=== PATIENT | female | born 1965 | race Caucasian/White ===

== ENCOUNTER 2019-10-06 12:49 | Emergency (ER) | payer OTHER, SELFPAY ==
--- NOTE | ~2019-10-06 | XR_ITS ---
EXAMINATION: XR shoulder LT min 2V EXAM DATE: 10/06/2019 17:51 INDICATION: No known recent injury provided at this time. Pain of the left shoulder. TECHNIQUE: The following left shoulder projections obtained: frontal projection with internal rotatio n, frontal projection with external rotation, Grashey, and scapular Y view (4+ views). There is no p rior study for comparison. FINDINGS: No evidence of left shoulder rotator cuff calcific tendinosis. There is mild glenohumera l, moderate acromioclavicular joint primary osteoarthritis. There are no acute fractures or dislocati ons identified. There is no subcutaneous gas. The soft tissue is unremarkable. There are no radio paque foreign bodies. IMPRESSION: Moderate left acromioclavicular, mild glenohumeral osteoarthritis. Reviewed, dictated and finalized at location A.
--- NOTE | ~2019-10-06 | XR_ITS ---
EXAMINATION: XR chest 2V DATE: 10/06/2019 13:42 INDICATION: Chest heaviness. Shoulder pain. TECHNIQUE: Frontal and lateral views of the chest were obtained. COMPARISON: Chest 2 views 10/04/2017 FINDINGS: Calcified right lung nodules and calcified mediastinal lymph nodes are consistent with old granulomatous disease. No pleural effusion or pneumothorax. The heart size is normal. IMPRESSION: 1. No acute cardiopulmonary disease. Reviewed, dictated and finalized at location A.
[2019-10-06 13:15] VITALS: BP 139/87; PULSE 95; RESP 16; TEMP 36.9; O2SAT 98
--- NOTE | 2019-10-06 13:17 | ECG_ITS ---
Measurements Intervals [place] Rate: 77 P: 40 NM: 160 QRS: 41 QRSD: 101 T: 28 QT: 384 QTc: 437 Interpretive Statements SINUS RHYTHM NORMAL ECG Electronically Signed On 10-06-2019 14:04:09 CDT by Miguel Alvarado D.O.
--- NOTE | 2019-10-06 13:18 | PC.NURSE ---
PT ALLERGIC TO ASA, TAKEN OUT OF PROTOCOL.
[2019-10-06 13:29] LABS: Basophils Absolute Auto 0.1 K/mm3 (0.0-0.1); Basophils Percent Auto 0.7 % (0.2-1.2); Eosinophils Absolute Auto 0.2 K/mm3 (0-0.3); Eosinophils Percent Auto 2.7 % (0-4.4); Hematocrit 41.4 % (37.0-47.0); Hemoglobin 13.5 g/dL (12.0-15.0); Immature Granulocyte Absolute 0.02 K/mm3 (0.00-0.031); Immature Granulocyte Percent A 0.3 % (0-0.5); Lymphocytes Absolute Auto 1.55 K/mm3 (0.9-3.2); Lymphocytes Percent Auto 20.8 % (18.3-44.2); Mean Corpuscular HGB Conc 32.6 g/dl (32-36); Mean Corpuscular Hemoglobin 32.7 pg (26-34); Mean Corpuscular Volume 100.2 fl (80-100); Mean Platelet Volume 9.5 fl (7.4-10.4); Monocytes Absolute Auto 0.5 K/mm3 (0.1-0.6); Neutrophils Absolute Auto 5.2 K/mm3 (1.3-6.7); Neutrophils Percent Auto 69.5 % (45.5-73.1); Platelet Count Result 244 k/mm3 (150-375); Red Blood Count 4.13 M/mm3 (4.2-5.4); Red Cell Distribution Width 12.3 % (11.5-14.5); White Blood Count 7.4 K/mm3 (4.5-10.0)
[2019-10-06 13:40] LABS: Blood Urea Nitrogen 16 mg/dL (7-17); Calcium 9.6 mg/dL (8.4-10.2); Carbon Dioxide 27 mmol/L (22-30); Chloride 104 mmol/L (98-107); Estimated CRCL calculation 90 ml/min; Estimated Glomerular Filt Rate > 60; Glucose 112 mg/dL (65-105); Potassium 3.8 mmol/L (3.4-5.0); Sodium 138 mmol/L (137-145)
[2019-10-06 13:42] LABS: INR 0.9; Partial Thromboplastin Time 27.4 SECONDS (22.3-36.8); Prothrombin Time 12.3 Seconds (11.1-14.7)
[2019-10-06 13:52] LABS: Troponin I < 0.012 ng/mL (0.000-0.034)
[2019-10-06 15:36] VITALS: BP 118/72; PULSE 72; RESP 18; TEMP 36.4; O2SAT 95
--- NOTE | 2019-10-06 16:41 | ED.UPPEXIN ---
HPI - Extremity Injury (Upper) General Chief Complaint: Extremity Injury, Upper Stated Complaint: left shoulder pain, vertigo Time Seen by Provider: 10/06/19 16:50 Source: patient and RN notes reviewed Mode of arrival: other Limitations: no limitations History of Present Illness HPI narrative: Pt is a 54 y/o female who presents to the ED with c/o sharp left shoulder stabbing pain that began a few days ago. She notes that her pain would wake her up in the middle of the night. She states that pain would be mild throughtout the day, but she states that her pain wakes her up several times during the night. 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 Pt notes that she has had cases of vertigo for the past week that would last for about 2 hours. Pt's PCP recommended the pt to come for further evaluation. Pt also reports chest pressure pain, but denies SOB. hx of htn, hld, former smoker, occ drink, fam hx: MO in father at age 70 complaint: injury to: left and shoulder Onset (ago): day(s) (few) Other injuries: none Associated symptoms: other (vertigo, chest pressure pain) Related Data Home Medications Medication Instructions Recorded Confirmed azelastine 137 mcg (0.1 %) nasal 2 spray NASAL Q12H ml 07/10/19 spray aerosol melatonin 10 mg capsule 10 mg PO .nightly cap 07/10/19 montelukast 10 mg tablet 10 mg PO DAILY 07/10/19 ibuprofen 200 mg capsule 400 mg PO Q6H PRN cap 07/16/19 Allergies Allergy/AdvReac Type Severity Reaction Status Date / Time aspirin Allergy Severe Anaphylaxis Verified 10/06/19 17:00 Review of Systems Review of Systems: All systems reviewed & are unremarkable except as noted in HPI and below ENT: Reports vertigo Cardiovascular: Cardiovascular: Reports chest pain (pressure) Respiratory: Respiratory: Denies dyspnea Musculoskeletal: Musculoskeletal: Reports other (left shoulder pain) [facility] Past Medical History Medical History (Updated 10/06/19 @ 17:37 by Johann Yañez MD) Ankylosing spondylitis Arthritis Depression DVT (deep venous thrombosis) Endometrial polyp Fatty liver GERD (gastroesophageal reflux disease) History of angina HTN (hypertension) Hyperlipidemia IBS (irritable bowel syndrome) Iron deficiency anemia CLEMENT (obstructive sleep apnea) Peripheral neuropathy MERRY (stress urinary incontinence, female) Tendonitis of ankle or foot Ulcer Surgical History Surgical History (Updated 10/06/19 @ 17:03 by Lindsey Salter) H/O arthroscopic knee surgery left History of hysterectomy History of spinal surgery L4-S1, x2 Hx of appendectomy Hx of tonsillectomy Family History Family History (Updated 10/06/19 @ 17:04 by Lindsey Salter) Father Family history of osteoporosis Hypertension Acute myocardial infarction, Onset Age: 70 Mother Depression Hypertension Family history of arthritis Patient's mother is in good health Grandparent Malignant neoplasm of prostate Sibling Family history of malignant melanoma Other Family history of malignant neoplasm Social History Social History (Updated 10/06/19 @ 17:03 by Lindsey Salter) Smoking status: Former smoker Tobacco type: cigarettes Second hand tobacco smoke exposure: Yes Smoking end date: 07/30/11 Alcohol intake: current Gender identity (if verbalized by the patient): Female Exam Narrative: Exam Narrative: General appearance: Well-developed, well-nourished Skin: Normal color Head: Normocephalic, nontraumatic Eyes: Clear conjunctiva ENT: Oropharynx normal, ears normal, nose normal Neck: Supple, nontender Chest and respiratory: Airway patent, no respiratory distress, no accessory muscle use Heart: Regular rate/rhythm Abdomen: Soft, nontender, no organomegaly, quiet bowel sounds Vascular: Normal peripheral pulses, normal capillary refill. Musculoskeletal: Normal range of motion, nontender back Neurologic: Alert and oriented ?3, DOWEL POINTER is normal as tested, no g
[2019-10-06 17:08] LABS: Troponin I < 0.012 ng/mL (0.000-0.034)
[2019-10-06 18:07] VITALS: BP 122/80; PULSE 75; RESP 18; O2SAT 99
[2019-10-06 18:34] VITALS: BP 121/83; PULSE 83; RESP 18; O2SAT 99
== END 2019-10-06 18:40 | disposition home or self-care (01) ==
PROVIDERS: Emergency Medicine; Emergency Provider Emergency Medicine; PCP Internal Medicine
DX: M25.512 Pain in left shoulder (principal); Z86.718 Personal history of other venous thrombosis and embolism; K21.9 Gastro-esophageal reflux disease without esophagitis; I10 Essential (primary) hypertension; E78.5 Hyperlipidemia, unspecified; K58.9 Irritable bowel syndrome, unspecified; G47.33 Obstructive sleep apnea (adult) (pediatric); G62.9 Polyneuropathy, unspecified; M19.012 Primary osteoarthritis, left shoulder; Z87.891 Personal history of nicotine dependence; Z86.2 Personal history of diseases of the blood and blood-forming organs and certain disorders involving the immune mechanism
CPT/HCPCS: 36415; 71046; 73030; 80048; 84484; 85025; 85610; 85730; 93005; 99284

== ENCOUNTER 2020-02-04 08:16 | Outpatient (CLI) | payer OTHER, SELFPAY ==
[2020-02-04 08:31] LABS: Basophils Percent Auto 0.5 % (0.2-1.2); Eosinophils Absolute Auto 0.3 K/mm3 (0-0.3); Eosinophils Percent Auto 3.7 % (0-4.4); Hematocrit 37.8 % (37.0-47.0); Hemoglobin 12.6 g/dL (12.0-15.0); Immature Granulocyte Absolute 0.04 K/mm3 (0.00-0.031); Immature Granulocyte Percent A 0.5 % (0-0.5); Lymphocytes Absolute Auto 1.42 K/mm3 (0.9-3.2); Lymphocytes Percent Auto 19.5 % (18.3-44.2); Mean Corpuscular HGB Conc 33.3 g/dl (32-36); Mean Corpuscular Hemoglobin 33.2 pg (26-34); Mean Corpuscular Volume 99.7 fl (80-100); Monocytes Absolute Auto 0.5 K/mm3 (0.1-0.6); Monocytes Percent Auto 6.8 % (2.6-8.5); Platelet Count Result 246 k/mm3 (150-375); Red Blood Count 3.79 M/mm3 (4.2-5.4); White Blood Count 7.3 K/mm3 (4.5-10.0)
[2020-02-04 08:40] LABS: Hemoglobin A1C 5.7 % (<5.7)
[2020-02-04 08:43] LABS: Alanine Aminotransferase 15 U/L (4-35); Albumin Level 3.8 g/dL (3.5-5.1); Alkaline Phosphatase 97 U/L (38-126); Aspartate Amino Transferase 19 U/L (14-36); Bilirubin,Total 0.3 mg/dL (0.2-1.3); Blood Urea Nitrogen 21 mg/dL (7-17); Calcium 9.2 mg/dL (8.4-10.2); Carbon Dioxide 29 mmol/L (22-30); Chloride 104 mmol/L (98-107); Cholesterol 176 mg/dL (0-200); Estimated Glomerular Filt Rate 58; Glucose 105 mg/dL (65-105); HDL Direct 54 mg/dL; Magnesium 1.9 mg/dL (1.6-2.3); Potassium 3.8 mmol/L (3.4-5.0); Sodium 138 mmol/L (137-145); Triglycerides 119 mg/dL (<150)
[2020-02-04 08:53] LABS: LDL Cholesterol Direct 101 mg/dL
[2020-02-04 09:13] LABS: Thyroid Stimulating Hormone 0.184 uIU/mL (0.465-4.680)
[2020-02-04 09:51] LABS: Folic Acid > 20.0 ng/mL (2.76->20)
== END 2020-02-04 08:17 | disposition home or self-care (01) ==
LOC: ANHLAB 08:18
PROVIDERS: PCP Internal Medicine; Visit Provider Internal Medicine
DX: Z00.00 Encounter for general adult medical examination without abnormal findings (principal); R53.83 Other fatigue; I10 Essential (primary) hypertension; R73.9 Hyperglycemia, unspecified
CPT/HCPCS: 36415; 80053; 80061; 82607; 82746; 83036; 83735; 84443; 85025

== ENCOUNTER 2020-04-14 00:56 | Outpatient (CLI) | payer OTHER, SELFPAY ==
[2020-04-14 18:28] LABS: SARS-CoV-2 RNA PCR Negative
== END 2020-04-14 00:57 | disposition home or self-care (01) ==
LOC: ANHCOVIDDT 00:56
PROVIDERS: PCP Internal Medicine; Visit Provider Internal Medicine Gastroenterology
DX: Z20.828 Contact with and (suspected) exposure to other viral communicable diseases (principal)
CPT/HCPCS: 87635; C9803; U0003

== ENCOUNTER 2020-04-16 03:58 | Day surgery (SDC) | payer OTHER, SELFPAY ==
[2020-04-12 12:44] VITALS: BMI 45.4
[2020-04-16 07:15] VITALS: BP 127/93; PULSE 71; RESP 24; O2SAT 97; BMI 46.0
[2020-04-16] MEDS: LACTATED RINGERS 1,000 ML 150 ML IV CONT (07:21)
--- NOTE | 2020-04-16 07:23 | WPDANESEPPF ---
Anes - Initial Pre Proc Eval Procedure: Operation Date: 04/16/20 08:00 Proposed Procedures p Screening Colonoscopy - Lance Meyer MD Date/Time: 04/16/20 07:23 Surgeon: Lance Meyer MD Pre Op Diagnosis: neoplasm screening Patient Data Age: 54 Gender: F Height: 5 ft 7 in Weight: 133.2 kg Last Vital Signs Pulse 71 04/16/20 07:15 Resp 24 H 04/16/20 07:15 BP 127/93 H 04/16/20 07:15 Pulse Ox 97 04/16/20 07:15 Allergies Allergy/AdvReac Type Severity Reaction Status Date / Time aspirin Allergy Severe Anaphylaxis Verified 04/16/20 07:14 Home Medications Medication Instructions Recorded Confirmed Type azelastine 137 mcg (0.1 %) nasal 2 spray NASAL Q12H ml 07/10/19 04/12/20 History spray aerosol melatonin 10 mg capsule 10 mg PO .nightly cap 07/10/19 04/12/20 History benzonatate 200 mg capsule 200 mg PO BID PRN #20 cap 11/07/19 04/12/20 Rx cefuroxime axetil 500 mg tablet 500 mg PO Q12H #20 tablet 11/07/19 04/12/20 Rx carvedilol 12.5 mg tablet 12.5 mg PO Q12H #180 tablet 01/23/20 04/12/20 Rx citalopram 20 mg tablet 20 mg PO DAILY #90 tablet 02/11/20 04/12/20 Rx montelukast 10 mg tablet 10 mg PO DAILY #90 tablet 02/11/20 04/12/20 Rx lisinopril 20 1 tablet PO BID #180 tablet 02/29/20 04/12/20 Rx mg-hydrochlorothiazide 12.5 mg tablet meloxicam 7.5 mg tablet 7.5 mg PO DAILY #30 tablet 04/12/20 04/12/20 Rx pantoprazole 40 mg tablet,delayed 40 mg PO BID #60 tablet 04/12/20 04/12/20 Rx release Patient hx anesthesia problems: none Family hx anesthesia problems: none PMFSH Social History Social History Years smoked: 22 Smoking status: Former smoker Tobacco type: cigarettes Second hand tobacco smoke exposure: Yes Smoking end date: 07/30/11 Alcohol intake: current Drinks per week: 2 Substance use: unknown Substance use type: unknown Living arrangements: with family Gender identity (if verbalized by the patient): Female Spiritual care concerns: No Anes - Eval Final PreProcedure Day of Procedure 04/16/20 07:23 Patient weight: morbidly obese Heart: regular rate and rhythm Lungs: clear to auscultation Airway: Mallampati scale class II Neurological: alert and oriented Last oral intake: >/= 8 hours ASA classification: IV Emergent: no Anesthetic plan: proceed Anesthesia type and monitoring: general GIVS and standard monitoring Informed Consent: The patient's anesthetic plan and its attendant risks and benefits were discussed with the patient/family/POA. Questions were solicited and answers provided to the satisfaction of the patient/family/POA.
--- NOTE | 2020-04-16 07:28 | PM.HPGS ---
History of Present Illness History of Present Illness Consent: Risks, benefits, and alternatives have been discussed and questions answered. Patient agrees to proceed with procedure. Chief complaint: neoplasm screening Narrative: Rebecca George is a 54 year old female here for colon cancer screening. [facility] Past Medical History Medical History Ankylosing spondylitis Arthritis Depression DVT (deep venous thrombosis) Endometrial polyp Fatty liver GERD (gastroesophageal reflux disease) History of angina HTN (hypertension) Hyperlipidemia IBS (irritable bowel syndrome) Iron deficiency anemia CLEMENT (obstructive sleep apnea) Peripheral neuropathy MERRY (stress urinary incontinence, female) Tendonitis of ankle or foot Ulcer Vaginal delivery x 2 Surgical History Surgical History H/O arthroscopic knee surgery left History of hysterectomy History of spinal surgery L4-S1, x2 Hx of appendectomy Hx of tonsillectomy Family History Family History Father Family history of osteoporosis Hypertension Acute myocardial infarction, Onset Age: 70 Mother Depression Hypertension Family history of arthritis Patient's mother is in good health Grandparent Malignant neoplasm of prostate Sibling Family history of malignant melanoma Other Family history of malignant neoplasm Social History Social History Years smoked: 22 Smoking status: Former smoker Tobacco type: cigarettes Second hand tobacco smoke exposure: Yes Smoking end date: 07/30/11 Alcohol intake: current Drinks per week: 2 Substance use: unknown Substance use type: unknown Living arrangements: with family Gender identity (if verbalized by the patient): Female Spiritual care concerns: No Meds Home Medications and Allergies Home Medications Medication Instructions Recorded Confirmed Type azelastine 137 mcg (0.1 %) nasal 2 spray NASAL Q12H ml 07/10/19 04/12/20 History spray aerosol melatonin 10 mg capsule 10 mg PO .nightly cap 07/10/19 04/12/20 History benzonatate 200 mg capsule 200 mg PO BID PRN #20 cap 11/07/19 04/12/20 Rx cefuroxime axetil 500 mg tablet 500 mg PO Q12H #20 tablet 11/07/19 04/12/20 Rx carvedilol 12.5 mg tablet 12.5 mg PO Q12H #180 tablet 01/23/20 04/12/20 Rx citalopram 20 mg tablet 20 mg PO DAILY #90 tablet 02/11/20 04/12/20 Rx montelukast 10 mg tablet 10 mg PO DAILY #90 tablet 02/11/20 04/12/20 Rx lisinopril 20 1 tablet PO BID #180 tablet 02/29/20 04/12/20 Rx mg-hydrochlorothiazide 12.5 mg tablet meloxicam 7.5 mg tablet 7.5 mg PO DAILY #30 tablet 04/12/20 04/12/20 Rx pantoprazole 40 mg tablet,delayed 40 mg PO BID #60 tablet 04/12/20 04/12/20 Rx release Allergies Allergy/AdvReac Type Severity Reaction Status Date / Time aspirin Allergy Severe Anaphylaxis Verified 04/16/20 07:14 Vital Signs Vital Signs - 24 hr 04/16/20 07:15 Pulse Rate 71 Respiratory Rate 24 H Blood Pressure 127/93 H Pulse Oximetry 97 Exam Resp: Auscultation: clear to auscultation bilaterally Cardio: Rate: regular rate Rhythm: regular rhythm GI: GI Palp: Yes Soft to palpation and No Tenderness to palpation present (GI) Assessment and Plan Assessment and plan (1) Colon cancer screening: Code(s): Z12.11 - Encounter for screening for malignant neoplasm of colon Status: Acute Assessment and Plan: Colonoscopy with possible biopsy or polypectomy or cautery or injection of substances.
[2020-04-16 08:09] VITALS: BP 104/69; PULSE 68; RESP 19; O2SAT 94
[2020-04-16 08:19] VITALS: BP 110/70; PULSE 71; RESP 19; O2SAT 98
[2020-04-16 08:29] VITALS: BP 118/70; PULSE 62; RESP 21; O2SAT 96
== END 2020-04-16 08:45 | disposition home or self-care (01) ==
PROVIDERS: PCP Internal Medicine; Visit Provider Internal Medicine Gastroenterology
PROC: 0DJD8ZZ Inspection of Lower Intestinal Tract, Via Natural or Artificial Opening Endoscopic (ICD-10-PCS; CPT 45378; principal; 2020-04-16 08:00)
DX: Z12.11 Encounter for screening for malignant neoplasm of colon (principal); Z87.891 Personal history of nicotine dependence; E66.01 Morbid (severe) obesity due to excess calories; Z68.42 Body mass index [BMI] 45.0-49.9, adult
CPT/HCPCS: 45378; J2704; J7120

== ENCOUNTER 2020-08-10 11:58 | Emergency (ER) | payer OTHER, SELFPAY ==
--- NOTE | ~2020-08-10 | CT_ITS ---
EXAMINATION: CTA chest PE protocol EXAM DATE: 08/10/2020 15:18 INDICATION: Shortness of breath, fever. COVID positive. TECHNIQUE: Spiral CTA of the chest (pulmonary arteries) was performed with 100 cc Omnipaque 350 intr avenous contrast injection. Images were acquired during the pulmonary arterial phase. Coronal maxi mum intensity projection 3D-reconstructions were created by the technologist on dedicated workstation . Axial, coronal and sagittal reformatted images were reviewed. The dose-length product (DLP) for t his examination was 1033.82 mGy-cm. The exposure was tailored according to patient size (auto mA ex posure control), and iterative reconstruction (ASIR) was used as additional dose reduction technique. Correlation is made to chest x-ray same date. FINDINGS: There are no pulmonary emboli in the 1st through 3rd order (central and interlobar) pulmon niels arteries. Some loss of attenuation in the basilar segmental pulmonary arteries without evidence of respiratory motion in these areas. No Intraluminal filling defects suspected. No thoracic aortic dissection. Moderate amount of patchy bilateral ill-defined peripheral predominant acute airspace di sease consistent with COVID pneumonia. Trace bilateral pleural effusions. Tracheobronchial tree is patent. There is no mediastinal, hilar or axillary lymphadenopathy. There is no pneumothorax. H eart normal in size. No evidence of coronary arterial calcification. Upper abdomen is unremarkable . There is moderate thoracic spondylosis without osteoblastic or osteolytic lesions identified. IMPRESSION: 1. No central pulmonary emboli. Basilar subsegmental arteries are not well evaluated. 2. Moderate COVID pneumonia. 3. Trace pleural effusions. Reviewed, dictated and finalized at location B. [employer]ER IMPRESSION: 1. No central pulmonary emboli. Basilar subsegmental arteries are not well pete luated. 2. Moderate COVID pneumonia. 3. Trace pleural effusions.
--- NOTE | ~2020-08-10 | XR_ITS ---
EXAMINATION: XR chest 1V portable DATE: 08/10/2020 14:27 INDICATION: Shortness of breath and fever. COVID-19 positive on 08/01/20. TECHNIQUE: A single frontal view of the chest was obtained. COMPARISON: Chest 2 views 10/02/2019 FINDINGS: A calcified right lung nodule is consistent with old granulomatous disease. There are airsp jb opacities in the mid and lower lung zones. No pleural effusion or pneumothorax. The heart size is normal. IMPRESSION: 1. Airspace opacities in the mid and lower lung zones, consistent with pneumonia. Reviewed, dictated and finalized at location A. GER CONSUMER IMPRESSION: 1. Airspace opacities in the mid and lower lung zones, consistent with pneumoni a.
[2020-08-10 12:04] VITALS: BP 104/65; PULSE 93; RESP 24; TEMP 38; O2SAT 95
[2020-08-10 14:02] VITALS: BP 138/78; PULSE 88; RESP 18; O2SAT 95
--- NOTE | 2020-08-10 14:03 | ED.SOB ---
HPI - SOB/Dyspnea General Chief Complaint: Shortness of Breath/Dyspnea Stated Complaint: covid positive Time Seen by Provider: 08/10/20 13:57 Source: patient Mode of arrival: ambulatory Limitations: no limitations History of Present Illness HPI Narrative: Patient is a 50-year-old female complaining of shortness of breath, body aches and fever that started approximately 10 days ago but states is worse for the past few days. Patient states that she tested positive for Covid on August 01. Patient denies any chest pain, dull pain, nausea, vomiting, diarrhea. Related Data Home Medications Medication Instructions Recorded Confirmed azelastine 137 mcg (0.1 %) nasal 2 spray NASAL Q12H ml 07/10/19 04/12/20 spray aerosol melatonin 10 mg capsule 10 mg PO .nightly cap 07/10/19 04/12/20 Allergies Allergy/AdvReac Type Severity Reaction Status Date / Time aspirin Allergy Severe Anaphylaxis Verified 04/16/20 07:14 Review of Systems Review of Systems: All systems reviewed & are unremarkable except as noted in HPI and below Constitutional: Constitutional: Denies excessive sweating, Denies fatigue, Denies headache(s), Denies lethargy, Denies malaise, Denies weakness and Denies weight loss Eyes: Eyes: Denies blurry vision, Denies change in vision and Denies loss of vision ENT: Denies dizziness, Denies ear discharge, Denies headache(s), Denies lip swelling, Denies epistaxis, Denies nasal congestion, Denies neck pain, Denies throat swelling and Denies tongue swelling Cardiovascular: Cardiovascular: Denies chest pain, Denies chest pain at rest, Denies chest pain with activity, Denies diaphoresis, Denies rapid heart rate, Denies edema, Denies irregular heart rhythm, Denies lightheadedness and Denies palpitations Respiratory: Respiratory: Denies chest congestion, Denies cough and Denies hemoptysis Gastrointestinal: Gastrointestinal: Denies abdominal pain, Denies melena, Denies hematochezia, Denies diarrhea, Denies nausea, Denies vomiting and Denies hematemesis Musculoskeletal: Musculoskeletal: Denies abnormal gait, Denies deformity, Denies joint swelling, Denies limited range of motion, Denies neck pain and Denies numbness Neurologic: Denies Abnormal speech present, Denies abnormal gait, Denies confusion, Denies dizziness, Denies headache(s), Denies focal weakness, Denies loss of vision, Denies numbness, Denies Other visual disturbances, Denies Sensory deficit (Neuro) and Denies weakness Psychiatric: Psychiatric: Denies confusion, Denies depression, Denies auditory hallucinations, Denies homicidal ideation and Denies suicidal ideation Endocrine: Endocrine: Denies cold intolerance, Denies excessive sweating, Denies fatigue, Denies heat intolerance and Denies palpitations Hematologic/Lymphatic: Hematologic/Lymphatic: Denies easy bleeding and Denies easy bruising Allergic/Immunologic: Allergic/Immunologic: Denies lip swelling, Denies throat swelling and Denies tongue swelling PMFSH Past Medical History Medical History (Updated 08/10/20 @ 16:11 by Alfredo Velasquez MD) Ankylosing spondylitis Arthritis Depression DVT (deep venous thrombosis) Endometrial polyp Fatty liver GERD (gastroesophageal reflux disease) History of angina HTN (hypertension) Hyperlipidemia IBS (irritable bowel syndrome) Iron deficiency anemia CLEMENT (obstructive sleep apnea) Peripheral neuropathy MERRY (stress urinary incontinence, female) Tendonitis of ankle or foot Ulcer Vaginal delivery x 2 Surgical History Surgical History H/O arthroscopic knee surgery left History of hysterectomy History of spinal surgery L4-S1, x2 Hx of appendectomy Hx of tonsillectomy Family History Family History Father Family history of osteoporosis Hypertension Acute myocardial infarction, Onset Age: 70 Mother Depression Hypertension Family history of arthritis
[2020-08-10 14:13] LABS: Basophils Percent Auto 0.3 % (0.2-1.2); Hematocrit 42.2 % (37.0-47.0); Hemoglobin 14.1 g/dL (12.0-15.0); Immature Granulocyte Absolute 0.01 K/mm3 (0.00-0.031); Immature Granulocyte Percent A 0.3 % (0-0.5); Lymphocytes Absolute Auto 0.65 K/mm3 (0.9-3.2); Lymphocytes Percent Auto 16.3 % (18.3-44.2); Mean Corpuscular HGB Conc 33.4 g/dl (32-36); Mean Corpuscular Hemoglobin 32.9 pg (26-34); Mean Corpuscular Volume 98.6 fl (80-100); Mean Platelet Volume 9.3 fl (7.4-10.4); Monocytes Absolute Auto 0.3 K/mm3 (0.1-0.6); Monocytes Percent Auto 7.8 % (2.6-8.5); Neutrophils Percent Auto 75.3 % (45.5-73.1); Platelet Count Result 137 k/mm3 (150-375); Red Blood Count 4.28 M/mm3 (4.2-5.4); Red Cell Distribution Width 12.3 % (11.5-14.5)
[2020-08-10] MEDS: LACTATED RINGERS 1,000 ML 999 ML IV CONT (14:16)
[2020-08-10 14:25] LABS: Base Excess ABG 1.3 mEq/l (+/-2.0); Carboxyhemoglobin 0.6 % THb (0-2.0); Fractional Inspired Oxygen 21 %; HCO3 ABG 24.5 mEq/l (22.0-26.0); Methemoglobin ABG 0.1 %THb (0-1.5); Oxygen Content ABG 17.6 %vol (16.0-22.0); Oxygen Saturation ABG 92.1 % (95.0-100.0); Oxyhemoglobin 90.7 % THb (90.0-100.0); PCO2 ABG 34.5 mmHg (35.0-45.0); PO2 ABG 58.4 mmHg (80.0-100.0); PO2 FiO2 Ratio Arterial Blood 2.78 %; Reduced Hemoglobin 8.6 %THb (0-5.0); Total Hemoglobin 13.8 g/dL (12.0-18.0)
[2020-08-10 14:26] LABS: Device ROOM AIR; Modified Allen's Test Pass; Site Drawn RIGHT RADIAL
[2020-08-10 14:38] LABS: Anion Gap 5 mmol/L (8-16); Blood Urea Nitrogen 16 mg/dL (7-17); Calcium 8.8 mg/dL (8.4-10.2); Carbon Dioxide 31 mmol/L (22-30); Chloride 101 mmol/L (98-107); Estimated CRCL calculation 72 ml/min; Estimated Glomerular Filt Rate 52; Glucose 129 mg/dL (65-105); Potassium 3.6 mmol/L (3.4-5.0); Sodium 137 mmol/L (137-145)
[2020-08-10 14:47] LABS: Lactic Acid Reflex 1.2 mmol/L (0.7-2.1)
[2020-08-10 14:54] LABS: Troponin I < 0.012 ng/mL (0.000-0.034)
[2020-08-10 15:24] LABS: D Dimer 0.42 ug/mL (<0.48)
[2020-08-10 15:53] LABS: Add Urine Microscopic? NO; Appearance Urine Clear (Clear); Bilirubin Urine Negative (Negative); Blood Urine Negative (Negative); Color Urine Yellow (Yellow); Glucose Urine UA Negative (Negative); Ketones Urine Negative (Negative); Leukocyte Esterase Ur Negative LEU/UL (Negative); Nitrate Urine Negative (Negative); Protein Urine Negative (Negative); Urobilinogen Urine Negative mg/dL (<2.0)
[2020-08-10 15:54] LABS: Specific Grav Ur > 1.060 (1.001-1.035)
[2020-08-10 16:53] VITALS: BP 132/68; PULSE 68; RESP 18; O2SAT 99
== END 2020-08-10 16:55 | disposition home or self-care (01) ==
PROVIDERS: Emergency Provider Emergency Medicine; PCP Internal Medicine
DX: U07.1 COVID-19 (principal); J12.82 Pneumonia due to coronavirus disease 2019; M19.90 Unspecified osteoarthritis, unspecified site; Z86.718 Personal history of other venous thrombosis and embolism; K21.9 Gastro-esophageal reflux disease without esophagitis; E78.5 Hyperlipidemia, unspecified; I10 Essential (primary) hypertension; G47.33 Obstructive sleep apnea (adult) (pediatric); G62.9 Polyneuropathy, unspecified; Z87.891 Personal history of nicotine dependence
CPT/HCPCS: 36415; 36600; 71045; 71275; 80048; 81003; 82375; 82805; 83050; 83605; 84484; 85025; 85380; 96360; 96372; 99284; J1100; J7120; Q9967

== ENCOUNTER 2020-11-05 12:46 | Outpatient (CLI) | payer SELFPAY ==
--- NOTE | ~2020-11-05 | XR_ITS ---
EXAMINATION: XR lumbar spine 2-3V EXAM DATE: 11/05/2020 13:09 INDICATION: Back pain. TECHNIQUE: Lumber spine frontal, lateral, lateral L5-S1 projections for interpretation. Comparison is made to prior examination from 07/31/2014. Correlation was made with CT lumbar spine 08/22/2016. FINDINGS: Interval posterior fusion L4-S1, in grade 1 anterolisthesis at the L4-5 level. There is mo derate to severe disc disease at L2-3, mild to moderate disc disease at the other lumbar levels. Mini mal lumbar dextroscoliosis. There is mild compression fracture inferior endplate of L1 which is new c ompared to 2017. Given sclerosis, appears subacute to chronic. Sacrum, sacroiliac joints, sacral arcu ate lines are intact. There are no acute fractures identified. IMPRESSION: 1. Mild compression fracture of L1, sclerosis suggests this is most likely subacute to chronic. 2. Spondylosis, moderate to severe disc disease at L2-3. 3. Intact fusion L4-S1. Reviewed, dictated and finalized at location A. IMPRESSION: 1. Mild compression fracture of L1, sclerosis suggests this is most likely sub acute to chronic. 2. Spondylosis, moderate to severe disc disease at L2-3. 3. Intact fusion L4-S1.
--- NOTE | ~2020-11-05 | XR_ITS ---
EXAMINATION: XR thoracic spine 2V EXAM DATE: 11/05/2020 13:09 INDICATION: Back pain. TECHNIQUE: Frontal and lateral projections of the thoracic spine as well as lateral swimmers projecti on of the upper thoracic spine for interpretation. There is no prior study for comparison. FINDINGS: There are no acute fractures identified. There is mild to moderate mid and lower thoracic disc disease. The thoracic vertebral body heights relatively well-maintained. The vertebral bodies ar e aligned in the AP dimension. Paraspinal soft tissue is unremarkable. IMPRESSION: 1. Mild to moderate thoracic spondylosis. 2. No acute findings. Reviewed, dictated and finalized at location A.
== END 2020-11-05 12:47 | disposition home or self-care (01) ==
PROVIDERS: PCP Internal Medicine; Visit Provider Internal Medicine
DX: M47.894 Other spondylosis, thoracic region (principal); M47.896 Other spondylosis, lumbar region; Z95.1 Presence of aortocoronary bypass graft
CPT/HCPCS: 72070; 72100

== ENCOUNTER 2020-12-14 10:06 | Outpatient (CLI) | payer SELFPAY ==
--- NOTE | ~2020-12-14 | US_ITS ---
EXAMINATION: US venous doppler [facility] DATE: 12/14/2020 11:14 INDICATION: Left lower limb pain. TECHNIQUE: Grayscale ultrasound images without and with compression and Doppler ultrasound images of the left lower extremity veins were obtained. COMPARISON: None. FINDINGS: The visualized portions of left common femoral vein, profunda (deep) femoral vein, femoral vein, popl iteal vein, posterior tibial veins, and greater saphenous vein outflow are patent. There is tendinopa thy of the Achilles tendon with at least a partial tear. IMPRESSION: 1. No deep venous thrombosis. 2. Tendinopathy of the Achilles tendon with at least a partial tear. Reviewed, dictated and finalized at location A.
== END 2020-12-14 10:07 | disposition home or self-care (01) ==
LOC: ANHIMG 10:13
PROVIDERS: PCP Internal Medicine; Visit Provider Physician Assistant
DX: M79.605 Pain in left leg (principal); R60.9 Edema, unspecified
CPT/HCPCS: 93971

== ENCOUNTER 2021-06-27 07:53 | Outpatient (CLI) | payer OTHER, SELFPAY ==
[2021-06-27 08:20] LABS: Basophils Absolute Auto 0.1 K/mm3 (0.0-0.1); Eosinophils Absolute Auto 0.2 K/mm3 (0-0.3); Eosinophils Percent Auto 2.5 % (0-4.4); Hematocrit 37.6 % (37.0-47.0); Hemoglobin 12.6 g/dL (12.0-15.0); Immature Granulocyte Absolute 0.02 K/mm3 (0.00-0.031); Immature Granulocyte Percent A 0.3 % (0-0.5); Lymphocytes Absolute Auto 1.64 K/mm3 (0.9-3.2); Lymphocytes Percent Auto 27.2 % (18.3-44.2); Mean Corpuscular HGB Conc 33.5 g/dl (32-36); Mean Corpuscular Volume 98.4 fl (80-100); Mean Platelet Volume 9.3 fl (7.4-10.4); Monocytes Absolute Auto 0.5 K/mm3 (0.1-0.6); Monocytes Percent Auto 7.6 % (2.6-8.5); Neutrophils Absolute Auto 3.7 K/mm3 (1.3-6.7); Neutrophils Percent Auto 61.4 % (45.5-73.1); Platelet Count Result 225 k/mm3 (150-375); Red Blood Count 3.82 M/mm3 (4.2-5.4)
[2021-06-27 08:30] LABS: Alanine Aminotransferase 13 U/L (4-35); Albumin Level 3.8 g/dL (3.5-5.1); Alkaline Phosphatase 106 U/L (38-126); Anion Gap 3 mmol/L (8-16); Aspartate Amino Transferase 19 U/L (14-36); Bilirubin,Total 0.4 mg/dL (0.2-1.3); Blood Urea Nitrogen 20 mg/dL (7-17); Calcium 9.4 mg/dL (8.4-10.2); Carbon Dioxide 29 mmol/L (22-30); Chloride 104 mmol/L (98-107); Cholesterol 186 mg/dL (0-200); Estimated Glomerular Filt Rate > 60; Glucose 106 mg/dL (65-110); HDL Direct 70 mg/dL; Potassium 3.9 mmol/L (3.4-5.0); Sodium 136 mmol/L (137-145); Triglycerides 88 mg/dL (<150)
[2021-06-27 08:41] LABS: LDL Cholesterol Direct 99 mg/dL
== END 2021-06-27 07:54 | disposition home or self-care (01) ==
PROVIDERS: PCP Internal Medicine; Visit Provider Internal Medicine
DX: R53.83 Other fatigue (principal); E78.5 Hyperlipidemia, unspecified
CPT/HCPCS: 36415; 80053; 80061; 82607; 82746; 84443; 85025

== ENCOUNTER 2021-10-31 09:03 | Outpatient (CLI) | payer OTHER, SELFPAY ==
--- NOTE | 2021-10-31 09:10 | ECG_ITS ---
Measurements Intervals [place] Rate: 56 P: 29 VA: 169 QRS: 49 QRSD: 89 T: 30 QT: 410 QTc: 399 Interpretive Statements SINUS BRADYCARDIA Electronically Signed On 10-31-2021 14:31:40 CDT by Yared Parekh M.D.
[2021-10-31 10:00] LABS: Anion Gap 5 mmol/L (8-16); Blood Urea Nitrogen 17 mg/dL (7-17); Carbon Dioxide 27 mmol/L (22-30); Chloride 106 mmol/L (98-107); Estimated Glomerular Filt Rate > 60; Glucose 98 mg/dL (65-110); Potassium 3.9 mmol/L (3.4-5.0); Sodium 138 mmol/L (137-145)
== END 2021-10-31 09:04 | disposition home or self-care (01) ==
LOC: ANHSURGERY 09:07
PROVIDERS: Anesthesiology; PCP Internal Medicine; Visit Provider Orthopaedic Surgery
DX: Z51.81 Encounter for therapeutic drug level monitoring (principal); I10 Essential (primary) hypertension; Z79.899 Other long term (current) drug therapy; Z01.818 Encounter for other preprocedural examination; R00.1 Bradycardia, unspecified
CPT/HCPCS: 36415; 80048; 93005

== ENCOUNTER 2021-11-03 01:39 | Day surgery (SDC) | payer OTHER, SELFPAY ==
[2021-10-28 15:36] VITALS: BMI 43.4
--- NOTE | 2021-10-28 16:01 | PC.NURSE ---
Report to the Outpatient Waiting Room, entrance under the green pavilion located off [facility], at time ___6:00AM____ on date _11/03/21 . OR Time: __7:30AM . - You and your visitor will be asked a series of questions to screen for COVID 19 for your protection. - A mask is required within the hospital. Preoperative COVID Testing Requirements: No COVID Test needed if: (proof is required; if not received patient will have Rapid Test prior to entry) - Patient has received COVID Vaccine at least 14 days prior to procedure date or - Patient has positive COVID test result within last 90 days of surgery date. COVID Test needed if above criteria is not met If not COVID vaccinated a COVID test must be conducted within 72 hours of surgery and patient is asked to isolate self from time of testing until procedure. You will go to the [facility] for your COVID testing. The [facility] site is located at the corner of [address] [facility]. You will only be called if COVID results are positive and your surgeon may reschedule your elective surgery date. Patients may have clear liquids (water, carbonated beverages, clear teas, apple juice) until 3 hours prior to surgery with a maximum of 20 ounces. - No food from midnight until time of surgery - Infants may have breast milk until 4 hours before surgery, formula 6 hours prior to surgery. - Children will be allowed to drink immediately following surgery. If applicable, please bring a bottle or sippy cup to assist with drinking. Juice, water, soda, and popsicles are readily available. For infants on formula, please bring formula the day of surgery. Pacifiers are allowed. Take the following medications with a SIP of water the morning of surgery: ___CARVEDILOL, CITALOPRAM Medications to discontinue per physician ALEVE 7 DAYS PRE-OP PER DR PERALTA- LAST DOSE 10/28/21, ALL VITAMINS/SUPPLEMENTS 3 DAYS PRE-OP-LAST DOSE 10/30/21 Please no make-up, nail kiswahili, hairspray, perfume, deodorant, or body powder the day of surgery. No jewelry (including any body piercings) or valuables the day of surgery, leave them at home. Please take a shower or bath the night before, or the morning of, surgery with an antibacterial soap. Wear comfortable, loose fitting clothing. Children are encouraged to wear pajamas. - Jewelry must be removed prior to entering the operating room. Rings and piercings that are not removed may be cut off. - The hospital will not accept responsibility for valuables. - Please leave all valuables, including medications, at home the day of surgery. If you are going home after surgery, a licensed courier delivery driver must drive you home. - NO public transportation without another adult. - We recommend that an adult stay with you for 24 hours following discharge. - We also recommend that you do not drive, make important decision, drink alcoholic beverages, or take any drugs that were not prescribed by your health care provider for at least 24 hours after your discharge time. For Pediatric surgeries, we recommend two adults accompany the child home (only one inside the building at this time). One visitor will be allowed to accompany the patient into the hospital. Patients visitor will be instructed to remain with patient at all times or leave the building. We will allow the visitor to come back to the postoperative area when patient is ready. Follow any additional instructions given to you from your surgeon. Telephone instructions given to __PATIENT and asked if any additional questions and then verbalized understanding. Patient advised to call surgeon office or pre surgery nurse liaison [phone] if any additional questions.
--- NOTE | 2021-11-02 17:04 | WPDANESEPPF ---
Anes - Initial Pre Proc Eval Procedure: Operation Date: 11/03/21 07:30 Proposed Procedures p Right Achilles Tendon Reconstruction, - Jules Estrada MD s Excision Calcaneal Exostosis Right Ankle, Possible Flexor Hallucis Longus Tendon Transfer - Jules Estrada MD Date/Time: 11/02/21 17:04 Surgeon: Jules Estrada MD Pre Op Diagnosis: right achilles tendonosis,calcaneal exostosis Patient Data Age: 56 Gender: F Height: 1.7 m Weight: 126 kg Allergies Allergy/AdvReac Type Severity Reaction Status Date / Time aspirin Allergy Severe Anaphylaxis Verified 10/28/21 15:31 Home Medications Medication Instructions Recorded Confirmed Type carvedilol 12.5 mg tablet 12.5 mg PO Q12H #180 tablet 06/29/21 10/28/21 Rx lisinopril 20 1 tablet PO BID #180 tablet 06/29/21 10/28/21 Rx mg-hydrochlorothiazide 12.5 mg tablet montelukast 10 mg tablet 10 mg PO DAILY #90 tablet 06/29/21 10/28/21 Rx pantoprazole 40 mg tablet,delayed 40 mg PO BID #60 tablet 06/29/21 10/28/21 Rx release calcium polycarbophil [FiberCon] 1,250 mg PO DAILY 10/28/21 10/28/21 History citalopram 40 mg PO QAM 10/28/21 10/28/21 History cyanocobalamin (vitamin B-12) 500 mcg PO DAILY 10/28/21 10/28/21 History elderberry fruit [Elderberry] 200 mg PO DAILY 10/28/21 10/28/21 History naproxen sodium [Aleve] 440 mg PO BID PRN 10/28/21 10/28/21 History Patient hx anesthesia problems: none Family hx anesthesia problems: none Results Review: All pre-operative results and documents have been reviewed as part of the pre-operative evaluation. [facility] Past Medical History Medical History (Updated 11/02/21 @ 17:07 by Todd Mulligan MD) Achilles tendinitis of right lower extremity Anesthesia complication Ankylosing spondylitis Arthritis Chest tightness Depression DVT (deep venous thrombosis) Endometrial polyp Exostosis of right posterior calcaneus Fatty liver GERD (gastroesophageal reflux disease) History of angina HTN (hypertension) Hyperlipidemia IBS (irritable bowel syndrome) Iron deficiency anemia MRSA (methicillin resistant Staphylococcus aureus) Obesity, Class III, BMI 40-49.9 (morbid obesity) CLEMENT (obstructive sleep apnea) Peripheral neuropathy MERRY (stress urinary incontinence, female) Tendonitis of ankle or foot Ulcer Vaginal delivery x 2 Vertigo Surgical History Surgical History H/O arthroscopic knee surgery left History of hysterectomy History of spinal surgery L4-S1, x2 Hx of appendectomy Hx of tonsillectomy Family History Family History Father Family history of osteoporosis Hypertension Acute myocardial infarction, Onset Age: 70 Mother Depression Hypertension Family history of arthritis Patient's mother is in good health Grandparent Malignant neoplasm of prostate Sibling Family history of malignant melanoma Other Cerebrovascular accident Family history of malignant neoplasm Kidney disorder Social History Social History Smoking packs per day: 1 Smoking cigarettes per day: 20.0 Years smoked: 20 Smoking pack-years: 20.00 Smoking status: Former smoker Tobacco type: cigarettes Second hand tobacco smoke exposure: Yes Smoking end date: 01/27/98 Alcohol intake: current Drinks per week: 14 Substance use: never Substance use type: marijuana Other substance usage details: intermittent use for pain Living arrangements: with family Additional living arrangements comments: TOM 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
[2021-11-03] VITALS (7 sets, daily range): BP systolic 115–156; BP diastolic 72–106; PULSE 59–76; RESP 12–16; TEMP 36.2–36.4; O2SAT 93–100
--- NOTE | ~2021-11-03 | XR_ITS ---
EXAMINATION: XR surgery orthopedic DATE: 11/03/2021 08:29 INDICATION: Right foot and ankle surgery TECHNIQUE: 3 fluoroscopic images of the right hindfoot were obtained during procedure performed by Dr Lex Estrada. Radiologist was not present for the imaging or procedure. The amount of fluoroscopy time u sed during this procedure was 0.1 minutes. COMPARISON: None. FINDINGS: Osteotomy at the cephalad aspect of the posterior tuberosity of the calcaneus. Surgical retractors se parating a lucent soft tissue defect overlying the osteotomy. Moderate-sized plantar calcaneal spur. No fracture. Joint spaces are normal. IMPRESSION: 1. Fluoroscopy utilized during posterior right calcaneal osteotomy. See procedure note for further de tail. Reviewed, dictated and finalized at location B. IMPRESSION: 1. Fluoroscopy utilized during posterior right calcaneal osteotomy. See procedu re note for further detail.
[2021-11-03] MEDS: ACETAMINOPHEN 500 MG TABLET 1000 MG PO (06:58)
--- NOTE | 2021-11-03 07:08 | WPDHPUPDATE1 ---
History and Physical Update Update Date/Time: 11/03/21 07:08 History and Physical has been reviewed, including an updated exam of the patient. There are NO changes in the patient's condition. Risks, benefits, and alternatives have been discussed and questions answered. Patient agrees to proceed with procedure.
[2021-11-03] MEDS: LACTATED RINGERS 1,000 ML 30 ML IV CONT (07:09)
[2021-11-03] MEDS: ceFAZolin 3 GM/D5W 100 ML 100 ML IVPB (07:30)
[2021-11-03] MEDS: BUPIVACAINE HCL 0.5% PF 30 ML VIAL INFILTRATE (08:13)
--- NOTE | 2021-11-03 09:18 | W.PM.PROC2 ---
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 Failed conservative care with physical therapy, activity modification and immobilization. Presents now for operative treatment. Description of Procedure Patient identified in the preoperative holding. Informed consent given. Operative extremity marked. Patient received intravenous antibiotics. Patient brought to the operating room where underwent general anesthetic by anesthesia team. Positioned prone on operating room table. Care taken to carefully secure and protect the head neck, and pad the bony prominences, and position the shoulders and arms. Time-out performed confirming the patient, site of the surgery and the plan. Right lower extremity prepped draped usual sterile surgical fashion using ChloraPrep skin solution. Foot and ankle exsanguinated and thigh tourniquet inflated to 250 mmHg. Direct posterior midline incision made with 15 blade knife over the distal Achilles tendon and posterior calcaneus. Hemostasis achieved with electrocautery. Full-thickness skin flaps developed medially and laterally including the paratenon over the Achilles tendon. Distal Achilles tendon noted to be degenerative with calcifications present. Fifteen blade knife used to release the Achilles tendon off the distal calcaneus with a midline split. Calcifications and degenerative portions sharply excised. Sufficient amount of normal Achilles tendon remaining for reconstruction. Osteotome used to resect the posterior calcaneal exostosis and osteophytes. Edges smoothed with a rongeur. Image intensification brought in and confirmed resection of the posterior exostosis. Wound thoroughly irrigated antibiotic solution. Retrocalcaneal bursa also sharply excised and bleeding points coagulated. Attention then turned to the Achilles tendon. Reconstruction achieved with the Arthrex Speed Bridge. 3.5 mm drill holes placed in posterior calcaneus and PushLock anchors placed with fiber tape. Fiber tape then delivered through the medial and lateral end of the Achilles tendon. Repair completed by passing the FiberTape ends through 4.75 mm SwiveLock anchors placed distal to the Achilles tendon insertion. Good repair noted. Midline split repaired with 0 Vicryl interrupted suture. Wound thoroughly irrigated antibiotic solution. Paratenon then repaired with 3 0 Monocryl running suture. Deep soft tissue repaired with 2 Vicryl interrupted suture. Skin approximated with 4 O nylon running suture. Sterile dressing applied. Bulky dressing and splint applied after releasing the tourniquet. The patient was then woken from anesthesia, extubated and taken to the recovery room in stable condition. All sponge, needle, instrument counts were correct at the end of the case. Implants Arthrex suture bridge Estimated Blood Loss 5 Tourniquet Time 75 Drains No Packing No Pathology None sent Complications None Condition Stable Disposition PACU
== END 2021-11-03 10:45 | disposition home or self-care (01) ==
PROVIDERS: PCP Internal Medicine; Visit Provider Orthopaedic Surgery
PROC: (CPT 27650; principal; 2021-11-03 07:30)
PROC: (CPT 28120; 2021-11-03 07:30)
DX: M76.61 Achilles tendinitis, right leg (principal); M77.31 Calcaneal spur, right foot; I10 Essential (primary) hypertension; E78.5 Hyperlipidemia, unspecified; D50.9 Iron deficiency anemia, unspecified; F32.9 Major depressive disorder, single episode, unspecified; K76.0 Fatty (change of) liver, not elsewhere classified; G47.33 Obstructive sleep apnea (adult) (pediatric); G62.9 Polyneuropathy, unspecified; N39.3 Stress incontinence (female) (male); Z86.718 Personal history of other venous thrombosis and embolism; Z87.891 Personal history of nicotine dependence; F12.90 Cannabis use, unspecified, uncomplicated; E66.01 Morbid (severe) obesity due to excess calories; Z68.41 Body mass index [BMI] 40.0-44.9, adult
CPT/HCPCS: 28120; 27650; A9270; C1713; J0330; J0690; J1100; J1170; J1885; J2250; J2405; J2704; J2710; J3010; J7120

== ENCOUNTER 2022-02-27 10:32 | Outpatient (RCR) | payer OTHER, SELFPAY ==
[2022-02-27] MEDS: ACETAMINOPHEN 325 MG TABLET 650 MG PO (14:43)
[2022-02-27] MEDS: diphenhydrAMINE HCl CAP 25 MG CAPSULE PO (14:44)
[2022-02-27] MEDS: FAMOTIDINE 20 MG TABLET PO (14:44)
[2022-02-27 14:52] VITALS: BP 126/83; PULSE 87; RESP 18; TEMP 37.1; O2SAT 95
[2022-02-27] MEDS: BEBTELOVIMAB 175 MG/2 ML VIAL IV PUSH (15:04)
[2022-02-27 15:44] VITALS: BP 128/77; PULSE 85; RESP 18; O2SAT 98
== END 2022-02-27 16:00 ==
LOC: AMCINF 10:32
PROVIDERS: PCP Internal Medicine; Referring Provider Internal Medicine; Visit Provider Internal Medicine Hematology & Oncology
DX: U07.1 COVID-19 (principal); I10 Essential (primary) hypertension
CPT/HCPCS: A9270; M0222; Q0222

== ENCOUNTER 2022-05-24 07:52 | Outpatient (CLI) | payer OTHER, SELFPAY ==
--- NOTE | ~2022-05-24 | US_ITS ---
US abdomen complete EXAMINATION: US Abdomen Complete INDICATION: Abdominal pain PROCEDURE: Realtime High Resolution abdomen ultrasound. COMPARISON: Ultrasound dated 03/26/2017 FINDINGS: Gallbladder within normal limits. No gallstones, pericholecystic fluid, gallbladder wall t hickening or biliary dilatation. Common bile duct measures 5 mm. Liver echotexture is increased, consistent with fatty infiltration.. Pancreas within normal limits. Pancreatic tail is obscured by bowel gas. Spleen is unremarkeable. Renal echotexture is within norm al limits bilaterally without hydronephrosis, contour deforming mass or renal stone. Right kidney lexis sures 12.7 cm. Left kidney measures 10.3 cm. Visualized aspects of the aorta and IVC are within normal limits. Portal vein is patent. No sonograph ic Cummings's sign indicated by the technologist. IMPRESSION: 1: Hepatic steatosis. Reviewed, dictated and finalized at location B. IMPRESSION: 1: Hepatic steatosis.
[2022-05-24 08:45] LABS: Basophils Absolute Auto 0.1 K/mm3 (0.0-0.1); Basophils Percent Auto 0.9 % (0.2-1.2); Eosinophils Absolute Auto 0.2 K/mm3 (0-0.3); Eosinophils Percent Auto 2.9 % (0-4.4); Hematocrit 38.5 % (37.0-47.0); Hemoglobin 12.5 g/dL (12.0-15.0); Immature Granulocyte Absolute 0.04 K/mm3 (0.00-0.031); Immature Granulocyte Percent A 0.6 % (0-0.5); Lymphocytes Absolute Auto 1.72 K/mm3 (0.9-3.2); Lymphocytes Percent Auto 25.3 % (18.3-44.2); Mean Corpuscular HGB Conc 32.5 g/dl (32-36); Mean Corpuscular Hemoglobin 32.7 pg (26-34); Mean Corpuscular Volume 100.8 fl (80-100); Mean Platelet Volume 9.1 fl (7.4-10.4); Monocytes Absolute Auto 0.4 K/mm3 (0.1-0.6); Monocytes Percent Auto 5.9 % (2.6-8.5); Neutrophils Absolute Auto 4.4 K/mm3 (1.3-6.7); Neutrophils Percent Auto 64.4 % (45.5-73.1); Platelet Count Result 244 k/mm3 (150-375); Red Blood Count 3.82 M/mm3 (4.2-5.4); Red Cell Distribution Width 12.6 % (11.5-14.5); White Blood Count 6.8 K/mm3 (4.5-10.0)
[2022-05-24 08:57] LABS: Rheumatoid Factor < 8.6 IU/ML (<12)
[2022-05-24 09:08] LABS: Alanine Aminotransferase 19 U/L (6-35); Albumin Level 3.7 g/dL (3.5-5.1); Alkaline Phosphatase 101 U/L (38-126); Anion Gap 6 mmol/L (8-16); Aspartate Amino Transferase 19 U/L (14-36); Bilirubin,Total 0.6 mg/dL (0.2-1.3); Blood Urea Nitrogen 18 mg/dL (7-17); Calcium 9.1 mg/dL (8.4-10.2); Carbon Dioxide 27 mmol/L (22-30); Chloride 109 mmol/L (98-107); Cholesterol 174 mg/dL (0-200); Estimated Glomerular Filt Rate > 60; Glucose 106 mg/dL (65-110); HDL Direct 53 mg/dL; Potassium 3.9 mmol/L (3.4-5.0); Sodium 142 mmol/L (137-145); Triglycerides 95 mg/dL (<150)
[2022-05-24 09:19] LABS: LDL Cholesterol Direct 92 mg/dL
[2022-05-24 10:14] LABS: Folic Acid 6.4 ng/mL (2.76->20)
[2022-05-24 10:25] LABS: Erythrocyte Sedimentation Rate 15 mm/hr (0-20)
[2022-05-28 20:35] LABS: HLA B27 Negative (Negative)
== END 2022-05-24 07:53 | disposition home or self-care (01) ==
LOC: ANHIMG 07:54
PROVIDERS: PCP Internal Medicine; Visit Provider Internal Medicine
DX: R10.13 Epigastric pain (principal); R53.83 Other fatigue; I10 Essential (primary) hypertension; M45.9 Ankylosing spondylitis of unspecified sites in spine; M79.10 Myalgia, unspecified site; K76.0 Fatty (change of) liver, not elsewhere classified
CPT/HCPCS: 36415; 76700; 80053; 80061; 82607; 82746; 84443; 85025; 85652; 86038; 86430; 86812

== ENCOUNTER 2022-06-01 00:58 | Day surgery (SDC) | payer OTHER, SELFPAY ==
[2022-05-24 13:16] VITALS: BMI 43.9
--- NOTE | 2022-05-31 15:57 | PM.HPGS ---
History of Present Illness History of Present Illness Consent: Risks, benefits, and alternatives have been discussed and questions answered. Patient agrees to proceed with procedure. Chief complaint: Epigastric Pain Narrative: Rebecca George is a 57 year old female Referred for investigation of epigastric pain. She states that she has attacks every couple weeks of discomfort in the upper abdomen somewhat towards the left side. Along with this she notices she is often constipated. She has not been vomiting or losing weight. She occasionally has difficulty swallowing cold liquids, feeling that it is constricting in the upper esophagus. Review of Systems Review of Systems: All systems reviewed & are unremarkable except as noted in HPI and below PMFSH Past Medical History Medical History Achilles tendinitis Achilles tendinitis of right lower extremity Anesthesia complication Ankylosing spondylitis Arthritis Chest tightness Depression DVT (deep venous thrombosis) Encounter for postoperative care Endometrial polyp Exostosis of right posterior calcaneus Fatty liver GERD (gastroesophageal reflux disease) History of angina HTN (hypertension) Hyperlipidemia IBS (irritable bowel syndrome) Iron deficiency anemia MRSA (methicillin resistant Staphylococcus aureus) Obesity, Class III, BMI 40-49.9 (morbid obesity) CLEMENT (obstructive sleep apnea) Peripheral neuropathy MERRY (stress urinary incontinence, female) Tendonitis of ankle or foot Ulcer Vaginal delivery x 2 Vertigo Surgical History Surgical History H/O arthroscopic knee surgery left History of hysterectomy History of spinal surgery L4-S1, x2 Hx of appendectomy Hx of tonsillectomy Family History Family History Father Family history of osteoporosis Hypertension Acute myocardial infarction, Onset Age: 70 Mother Depression Hypertension Family history of arthritis Patient's mother is in good health Grandparent Malignant neoplasm of prostate Sibling Family history of malignant melanoma Other Cerebrovascular accident Family history of malignant neoplasm Kidney disorder Social History Social History Smoking packs per day: 1 Smoking cigarettes per day: 20.0 Years smoked: 15 Smoking pack-years: 15.00 Smoking status: Former smoker Tobacco type: cigarettes Second hand tobacco smoke exposure: Yes Smoking end date: 01/27/98 Alcohol intake: current Drinks per week: 7 Alcohol use details: 1 glass per day Substance use: never Substance use type: does not use Other substance usage details: intermittent use for pain Living arrangements: with family Additional living arrangements comments: TOM 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[employer] Gender identity (if verbalized by the patient): Female Sexual Orientation (if Verbalized by the Patient): Straight or Heterosexual Spiritual care concerns: No Meds Home Medications and Allergies Home Medications Medication Instructions Recorded Confirmed Type calcium polycarbophil 625 mg 1,250 mg PO DAILY 10/28/21 05/24/22 History tablet (FiberCon) cyanocobalamin (vitamin B-12) 500 500 mcg PO DAILY 10/28/21 05/24/22 History mcg tablet naproxen sodium 220 mg capsule 440 mg PO BID PRN Pain 10/28/21 05/24/22 History (Aleve) citalopram 40 mg tablet 40 mg PO QAM #90 tabs 03/18/22 05/24/22 Rx pantoprazole 40 mg tablet,delayed 40 mg PO BID #60 tabs 03/18/22 05/24/22 Rx release carvedilol 12.5 mg tablet 12.5 mg PO Q12H #180 tabs 04/27/22 06/01/22 Rx montelukast 10 mg tablet 10 mg PO DAILY #90 tabs 04/27/22 05/24/22 Rx (Singulair) lisinopril 20 1 tablet PO BID #180 tabs 05/10/22 05/24/22 Rx mg-hydrochloroth
[2022-06-01 11:10] VITALS: BP 134/87; PULSE 75; RESP 18; TEMP 36.4; O2SAT 96
[2022-06-01] MEDS: LACTATED RINGERS 1,000 ML 150 ML IV CONT (11:22)
--- NOTE | 2022-06-01 11:52 | WPDANESEPPF ---
Anes - Initial Pre Proc Eval Procedure: Operation Date: 06/01/22 12:30 Proposed Procedures p Esophagogastroduodenoscopy - Lance Meyer MD Date/Time: 06/01/22 11:52 Surgeon: Lance Meyer MD Pre Op Diagnosis: Epigastric Pain Patient Data Age: 57 Gender: F Height: 1.7 m Weight: 129.6 kg Last Vital Signs Temp 97.6 F 06/01/22 11:10 Pulse 75 06/01/22 11:10 Resp 18 06/01/22 11:10 BP 134/87 06/01/22 11:10 Pulse Ox 96 06/01/22 11:10 O2 Del Method Room Air 06/01/22 11:10 Allergies Allergy/AdvReac Type Severity Reaction Status Date / Time aspirin Allergy Severe Anaphylaxis Verified 06/01/22 11:08 Home Medications Medication Instructions Recorded Confirmed Type calcium polycarbophil 625 mg 1,250 mg PO DAILY 10/28/21 05/24/22 History tablet (FiberCon) cyanocobalamin (vitamin B-12) 500 500 mcg PO DAILY 10/28/21 05/24/22 History mcg tablet naproxen sodium 220 mg capsule 440 mg PO BID PRN Pain 10/28/21 05/24/22 History (Aleve) citalopram 40 mg tablet 40 mg PO QAM #90 tabs 03/18/22 05/24/22 Rx pantoprazole 40 mg tablet,delayed 40 mg PO BID #60 tabs 03/18/22 05/24/22 Rx release carvedilol 12.5 mg tablet 12.5 mg PO Q12H #180 tabs 04/27/22 06/01/22 Rx montelukast 10 mg tablet 10 mg PO DAILY #90 tabs 04/27/22 05/24/22 Rx (Singulair) lisinopril 20 1 tablet PO BID #180 tabs 05/10/22 05/24/22 Rx mg-hydrochlorothiazide 12.5 mg tablet Patient hx anesthesia problems: none Family hx anesthesia problems: none Results Review: All pre-operative results and documents have been reviewed as part of the pre-operative evaluation. [facility] Past Medical History Medical History (Updated 05/31/22 @ 15:59 by Lance Meyer MD) Achilles tendinitis Achilles tendinitis of right lower extremity Anesthesia complication Ankylosing spondylitis Arthritis Chest tightness Depression DVT (deep venous thrombosis) Encounter for postoperative care Endometrial polyp Exostosis of right posterior calcaneus Fatty liver GERD (gastroesophageal reflux disease) History of angina HTN (hypertension) Hyperlipidemia IBS (irritable bowel syndrome) Iron deficiency anemia MRSA (methicillin resistant Staphylococcus aureus) Obesity, Class III, BMI 40-49.9 (morbid obesity) CLEMENT (obstructive sleep apnea) Peripheral neuropathy MERRY (stress urinary incontinence, female) Tendonitis of ankle or foot Ulcer Vaginal delivery x 2 Vertigo Surgical History Surgical History H/O arthroscopic knee surgery left History of hysterectomy History of spinal surgery L4-S1, x2 Hx of appendectomy Hx of tonsillectomy Family History Family History Father Family history of osteoporosis Hypertension Acute myocardial infarction, Onset Age: 70 Mother Depression Hypertension Family history of arthritis Patient's mother is in good health Grandparent Malignant neoplasm of prostate Sibling Family history of malignant melanoma Other Cerebrovascular accident Family history of malignant neoplasm Kidney disorder Social History Social History Smoking packs per day: 1 Smoking cigarettes per day: 20.0 Years smoked: 15 Smoking pack-years: 15.00 Smoking status: Former smoker Tobacco type: cigarettes Second hand tobacco smoke exposure: Yes Smoking end date: 01/27/98 Alcohol intake: current Drinks per week: 7 Alcohol use details: 1 glass per day Substance use: never Substance use type: does not use Other substance usage details: intermittent use for pain Living arrangements: with family Additional living arrangements comments: TOM 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
[2022-06-01] MEDS: BENZOCAINE (*SP) 60 ML SPRAY CAN (HURRICAINE) 1 SPRAY MUCOUS MEM (12:08)
[2022-06-01 12:18] VITALS: BP 115/75; PULSE 72; RESP 23; O2SAT 96
[2022-06-01 12:28] VITALS: BP 121/76; PULSE 73; RESP 22; O2SAT 98
[2022-06-01 12:38] VITALS: BP 130/90; PULSE 68; RESP 25; O2SAT 98
== END 2022-06-01 12:46 | disposition home or self-care (01) ==
PROVIDERS: PCP Internal Medicine; Visit Provider Internal Medicine Gastroenterology
PROC: 0DJ08ZZ Inspection of Upper Intestinal Tract, Via Natural or Artificial Opening Endoscopic (ICD-10-PCS; CPT 43235; principal; 2022-06-01 12:30)
DX: R10.13 Epigastric pain (principal); I10 Essential (primary) hypertension; E78.5 Hyperlipidemia, unspecified; D50.9 Iron deficiency anemia, unspecified; F32.A Depression, unspecified; K21.9 Gastro-esophageal reflux disease without esophagitis; G47.33 Obstructive sleep apnea (adult) (pediatric); G62.9 Polyneuropathy, unspecified; K76.0 Fatty (change of) liver, not elsewhere classified; E66.01 Morbid (severe) obesity due to excess calories; Z68.41 Body mass index [BMI] 40.0-44.9, adult; Z87.891 Personal history of nicotine dependence; Z86.718 Personal history of other venous thrombosis and embolism
CPT/HCPCS: 43239; 87081; J2704; J7120

== ENCOUNTER 2022-09-26 08:12 | Outpatient (CLI) | payer OTHER, SELFPAY ==
--- NOTE | ~2022-09-26 | MM_ITS ---
EXAMINATION: MM screening trung BI w gabbie HISTORY: Screening mammogram TECHNIQUE: Craniocaudal and mediolateral oblique 3-D tomosynthesis images were obtained and synthetic 2-D images were generated. CAD analysis was submitted and interpreted. COMPARISON: 12/18/2018, 03/09/2016 bilateral screening mammogram examinations BREAST PARENCHYMAL COMPOSITION: There are scattered areas of fibroglandular density. FINDINGS: There is no evidence of suspicious mass, calcification, or architectural distortion to sugg est malignancy in either breast. There has been no suspicious interval change. IMPRESSION: 1. No mammographic evidence of malignancy. 2. Recommend routine screening mammography in one year. BI-RADS Category 1: Negative Reviewed, dictated and finalized at location A. ER MACHINE OPERATOR
== END 2022-09-26 08:13 | disposition home or self-care (01) ==
PROVIDERS: PCP Internal Medicine; Visit Provider Internal Medicine
DX: Z12.31 Encounter for screening mammogram for malignant neoplasm of breast (principal)
CPT/HCPCS: 77063; 77067

== ENCOUNTER 2023-01-23 10:27 | Outpatient (CLI) | payer OTHER, SELFPAY ==
--- NOTE | ~2023-01-23 | NM_ITS ---
EXAMINATION: NM jacinda stress w perfusion DATE: 01/23/2023 14:38 INDICATION: Palpitations. Morbid obesity. TECHNIQUE: Rest images were obtained following intravenous administration of 9.7 mCi Tc99m tetrofosmi n (Myoview). The patient was infused intravenously with Lexiscan (Regadenoson). Then, 30.5 mCi Tc99m tetrofosmin (Myoview) was administered intravenously, and stress images were obtained in supine posit ion. Repeat post stress images were also obtained in the prone position. Data was reconstructed into short axis and horizontal and vertical long axis SPECT images. Gated SPECT images were also obtained. COMPARISON: None. FINDINGS: There is no definite reversible or fixed perfusion abnormality to suggest ischemia or infar ction. There is normal left ventricular chamber size, wall motion and ejection fraction. Left ventr icular ejection fraction measures >70%. IMPRESSION: 1. Normal myocardial perfusion at rest and during stress. 2. Left ventricular ejection fraction measuring >70%. Reviewed, dictated and finalized at location A.
--- NOTE | 2023-01-23 08:52 | ECG_ITS ---
Measurements Intervals [place] Rate: 64 P: 48 ME: 168 QRS: 70 QRSD: 95 T: 44 QT: 434 QTc: 448 Interpretive Statements SINUS RHYTHM WITH OCCASIONAL VENTRICULAR PREMATURE COMPLEXES COMPARED TO ECG 10/31/2021 09:29:31 SINUS RHYTHM NOW PRESENT Electronically Signed On 01-23-2023 13:55:32 CDT by Betsy Mosher M.D.
--- NOTE | 2023-01-23 08:52 | ECHO_ITS ---
Patient Info Name: Rebecca George Age: 57 years : 1965 Gender: Female Ht: 67 in Wt: 286 lbs BSA: 2.55 m2 HR: 64 bpm BP: 107 / 81 mmHg Heart Rhythm: Sinus Rhythm Technical Quality: Good Exam Date: 01/23/2023 9:32 AM Exam Location: [facility] Patient Status: Outpatient Admit Date: 01/23/2023 Staff Ordering Physician: Inder Andre DO Engraver Tender: Minnie Pleitez RDCS Attending Provider: Inder Andre DO Referring Physician: Thai KRAFT; Exam Type: CA echo doppler color flow Study Info Indications R00.2 - Palpitations Complete two-dimensional, color flow and Doppler transthoracic echocardiogram is performed. Summary 1. Complete two-dimensional, color flow and Doppler transthoracic echocardiogram is performed. 2. Left ventricular chamber dimension is normal. 3. Left ventricular systolic function is normal, estimated at 60-65%. 4. The left ventricular diastolic function is grade I diastolic dysfunction. 5. E/e' 8 is minimally elevated. 6. No pulmonary hypertension, estimated pulmonary arterial systolic pressure is 30 mmHg. 7. There is trivial pericardial effusion. Left Ventricle E/e' 8 is minimally elevated. Left ventricular chamber dimension is normal. Left ventricular systolic function is normal, estimated at 60-65%. The left ventricular diastolic function is grade I diastolic dysfunction. Right Ventricle Right ventricular systolic function is normal and with normal TAPSE 1.8 cm. Right ventricular chamber dimension is normal. Left Atria Left atrial chamber dimension is normal. Right Atria Right atrial chamber dimension is normal. Aortic Valve The aortic valve is trileaflet. There is no aortic valve stenosis. There is no aortic valve regurgitation. Pulmonic Valve There is no pulmonic regurgitation. Mitral Valve There is no mitral valve stenosis. There is no mitral valve regurgitation. Tricuspid Valve There is no tricuspid valve regurgitation. No pulmonary hypertension, estimated pulmonary arterial systolic pressure is 30 mmHg. Pericardium/Pleural There is trivial pericardial effusion. Inferior Vena Cava Normal inferior vena cava with >50% collapse upon inspiration consistent with normal right atrial pressure, 5 mmHg. Aorta The aortic root size at the sinus of Valsalva is normal. Left Ventricular Outflow Tract Name Value Normal LVOT 2D LVOT Diameter 1.8 cm LVOT Doppler LVOT Peak Gradient 4 mmHg LVOT Mean Gradient 2 mmHg LVOT VTI 26 cm LVOT VTI/AV VTI Ratio 0.8 LVOT Stroke Volume 63 ml LVOT CO 3.5 l/min LVOT CI 1.4 l/min/m2 Pulmonic Valve Name Value Normal RVOT Doppler RVOT Peak Gradient 1 mmHg PV Doppler
[2023-01-23 10:41] LABS: Basophils Absolute Auto 0.1 K/mm3 (0.0-0.1); Basophils Percent Auto 1.1 % (0.2-1.2); Eosinophils Absolute Auto 0.2 K/mm3 (0-0.3); Eosinophils Percent Auto 3.5 % (0-4.4); Hematocrit 44.1 % (37.0-47.0); Hemoglobin 14.5 g/dL (12.0-15.0); Immature Granulocyte Absolute 0.02 K/mm3 (0.00-0.031); Immature Granulocyte Percent A 0.4 % (0-0.5); Mean Corpuscular HGB Conc 32.9 g/dl (32-36); Mean Corpuscular Hemoglobin 33.2 pg (26-34); Mean Corpuscular Volume 100.9 fl (80-100); Mean Platelet Volume 9.4 fl (7.4-10.4); Monocytes Absolute Auto 0.4 K/mm3 (0.1-0.6); Monocytes Percent Auto 7.6 % (2.6-8.5); Neutrophils Absolute Auto 3.4 K/mm3 (1.3-6.7); Neutrophils Percent Auto 63.4 % (45.5-73.1); Platelet Count Result 239 k/mm3 (150-375); Red Blood Count 4.37 M/mm3 (4.2-5.4); Red Cell Distribution Width 12.1 % (11.5-14.5); White Blood Count 5.4 K/mm3 (4.5-10.0)
--- NOTE | 2023-01-23 10:42 | EST_ITS ---
Patient Info Name: Rebecca George Age: 57 years : 1965 Gender: Female Ht: 67 in Wt: 286 lbs BSA: 2.55 m2 HR: 64 bpm BP: 114 / 88 mmHg Heart Rhythm: Sinus Rhythm Exam Date: 01/23/2023 1:24 PM Exam Location: [facility] Stress Patient Status: Outpatient Admit Date: 01/23/2023 Staff Ordering Physician: Inder Andre DO Attending Provider: Inder Andre DO Exercise Technologist: Rika Hernandez CT Nurse: yury samaniego Exam Type: CA stress jacinda w NM Study Info Indications R00.2 - Palpitations A regadenoson stress test was performed. Summary 1. No abnormal ST/T wave changes diagnostic of ischemia with Lexiscan. 2. Occasional PVCs. 3. Please correlate with nuclear medicine images, reported separately. 4. Stress test supervised by Yury Samaniego BRENDA. Stress test interpreted by Betsy Mosher MD. Protocol: Lexiscan Stress ECG Details Stage: REST Duration (min): 1 min : 13 sec HR (bpm): 67 SBP (mmHg): 114 DBP (mmHg): 88 Stage: REST Duration (min): 6 min : 15 sec HR (bpm): 66 SBP (mmHg): 114 DBP (mmHg): 88 Stage: STAGE 1 Duration (min): 1 min : 0 sec HR (bpm): 83 SBP (mmHg): 114 DBP (mmHg): 77 Stage: RECOVERY Duration (min): 1 min : 0 sec HR (bpm): 92 SBP (mmHg): 114 DBP (mmHg): 77 Stage: RECOVERY Duration (min): 2 min : 0 sec HR (bpm): 83 SBP (mmHg): 114 DBP (mmHg): 77 Stage: RECOVERY Duration (min): 3 min : 0 sec HR (bpm): 83 SBP (mmHg): 132 DBP (mmHg): 79 Stage: RECOVERY Duration (min): 3 min : 19 sec HR (bpm): 80 SBP (mmHg): 132 DBP (mmHg): 79 Rest HR: 66 bpm Peak HR: 97 bpm Rest Sys BP: 114 mmHg Peak Sys BP: 132 mmHg Max Pred HR: 163 bpm % Max Pred HR: 60 % Target HR: 139 bpm Max RPP: 12,804 bpm*mmHg Total Time: 1 min : 0 sec Rest Whitney BP: 88 mmHg Peak Whitney BP: 79 mmHg Total Dose: 0.4 mg Resting ECG Sinus rhythm. Stress ECG Sinus rhythm. No abnormal ST/T wave changes diagnostic of ischemia with Lexiscan. Arrhythmias Occasional PVCs. Report Signatures
[2023-01-23 10:50] LABS: Alanine Aminotransferase 19 U/L (6-35); Alkaline Phosphatase 100 U/L (38-126); Anion Gap 4 mmol/L (8-16); Aspartate Amino Transferase 19 U/L (14-36); Bilirubin,Total 0.7 mg/dL (0.2-1.3); Blood Urea Nitrogen 23 mg/dL (7-17); Calcium 9.6 mg/dL (8.4-10.2); Carbon Dioxide 33 mmol/L (22-30); Chloride 100 mmol/L (98-107); Cholesterol 195 mg/dL (0-200); Estimated Glomerular Filt Rate > 60; Glucose 98 mg/dL (65-110); HDL Direct 60 mg/dL; Potassium 4.3 mmol/L (3.4-5.0); Sodium 137 mmol/L (137-145); Triglycerides 117 mg/dL (<150)
[2023-01-23 11:01] LABS: LDL Cholesterol Direct 104 mg/dL
[2023-01-23 11:20] LABS: Thyroid Stimulating Hormone 0.247 uIU/mL (0.465-4.680)
--- NOTE | 2023-01-26 12:41 | P.PCNHOL_ITS ---
Holter/Event Monitor Holter/Event Monitor Date of procedure: 01/23/23 Holter/Event Procedure: 48 Hr Holter Monitor Indications: Palpitations Conclusion: 1. 48 hour holter monitor on 01/23/23. 2. Underlying rhythm is sinus rhythm. HR range 46-111 bpm; average HR 78 bpm. 3. There are 27 premature supraventricular complexes and 3 supraventricular couplets. No supraventricular tachycardia. 4. There are 5,403 premature ventricular complexes, 106 ventricular couplets, 1 ventricular triplet, 5,059 ventricular bigeminy, 115 ventricular trigeminy. No ventricular tachycardia. 5. No sinoatrial or atrioventricular blocks. No significant pauses greater than 2 seconds. 6. Patient reports symptoms of shortness of breath, chest pain, weakness, lightheadedness, headache, dizziness which demonstrate sinus rhythm, HR range 8 3-103 bpm with 2 episodes with PVC's and 1 episode with ventricular bigeminy.
== END 2023-01-23 10:28 | disposition home or self-care (01) ==
PROVIDERS: PCP Internal Medicine; Visit Provider Internal Medicine
DX: Z00.00 Encounter for general adult medical examination without abnormal findings (principal); R00.2 Palpitations; R07.9 Chest pain, unspecified
CPT/HCPCS: 36415; 78452; 80053; 80061; 84443; 85025; 93005; 93017; 93225; 93226; 93306; A9502; J2785

== ENCOUNTER 2023-03-28 08:01 | Outpatient (CLI) | payer OTHER, SELFPAY ==
--- NOTE | 2023-03-28 14:46 | WPDPFTINT ---
PFT Procedure Performed PFT Procedure Performed Plethysmography (Lung Vol) Diffusing Cap (DLCO) Flow Vol Loop Spirometry w/o Bronchodil PFT Interpretation This is a pulmonary function test with spirometry, plethysmography and diffusing capacity. The test was performed and results interpreted in accordance with the 2019 and 2005 ATS/ERS Task Force guidelines respectively using the Global Lung Function Initiative-2012 reference equations. Patient demonstrated good effort and cooperation. Reproducibility criteria were met. The quality of the spirometry maneuver was Grade B. Findings: Spirometry: The contour the expiratory flow tracing is normal. The contour the inspiratory flow tracing is truncated. The FVC is 3.32 L, 92% predicted. The FEV1 is 2.65 L, 93% predicted. The FEV1: FVC ratio is 80%. Plethysmography: The total lung capacity is 5.50 L, 100% predicted. The functional residual capacity is 1.91 L, 61% predicted. The residual volume is 1.85 L, 89% predicted. Diffusing capacity: The diffusing capacity unadjusted for hemoglobin and carboxyhemoglobin is 18.8, 81% predicted. The diffusing capacity adjusted for alveolar volume is 4.27, 98% predicted. Impression: The spirometry is normal without evidence of an obstructive abnormality. The total lung capacity and residual volume are normal with a decreased functional residual capacity. This is an abnormal but nonspecific lung volume pattern. The diffusing capacity is normal. There are no prior studies for comparison
== END 2023-03-28 08:02 | disposition home or self-care (01) ==
PROVIDERS: PCP Family Medicine; Visit Provider Nurse Practitioner
DX: R06.02 Shortness of breath (principal)
CPT/HCPCS: 94375; 94726; 94729

== ENCOUNTER 2023-05-17 09:02 | Outpatient (CLI) | payer OTHER, SELFPAY ==
--- NOTE | 2023-06-06 09:21 | WPDHOMESLEEP ---
Sleep Study - Home Unattended Date of Study: 05/17/23 Ordering Provider: JULIO Nj Interpreting Provider: Britney Johnson MD Home Sleep Study Type: Watch PAT Height: 1.7 m Weight: 123.377 kg Body Mass Index: 42.5 Neck Circumference (inches): 15 Dalton: 18 Reason for Sleep Study Daytime hypersomnia. History of mild sleep apnea unable to tolerate CPAP. Sleep History Rebecca George is a 58 year-old woman with history of ankylosing spondylitis, depression, history of DVT, GERD, hypertension, hyperlipidemia, irritable bowel syndrome, iron deficiency anemia, and sleep apnea who underwent a home sleep test for re-evaluation. She had a split PSG 12/14/2017 showing mild sleep apnea with AHI of 9 and CPAP 8cmH2O was recommended. She attempted CPAP for about 3 months in 2018 and stopped using, not able to tolerate PAP. She is willing to pursue treatment with mandibular advancement device if she is found to be a candidate. She frequently awakens from sleep short of breath. She constantly awakens at night with heartburn, belching or coughing. She frequently snores and occasionally snores loudly enough that others complain. She constantly has trouble sleeping when she has a cold. She occasionally suddenly wakes up gasping for breath during the night. She frequently has breathing problems at night. She rarely sweats excessively at night. She frequently notices her heart pounding or beating irregularly during the night. She rarely falls asleep during the day. She never falls asleep while driving. She rarely experiences loss of muscle tone with strong emotion. She never feels paralyzed on waking or falling asleep. She rarely experiences vivid dreams upon waking or falling asleep. She does not feel afraid of going to sleep. She rarely has nightmares. She occasionally recalls her dreams. She rarely has thoughts racing through her mind. She rarely feels sad or depressed. She rarely feels anxiety or worry about things. She occasionally has muscular tension. She occasionally notices parts of her body jerk. She occasionally kicks during the night. She frequently feels crawling or aching feelings in her legs. She frequently feels leg pain at night. She frequently grinds her teeth during sleep and occasionally has morning jaw pain. She constantly feels bothered by pain during the day and is frequently awakened by pain during the night. She frequently wakes up feeling stiff in the morning. She occasionally wakes up feeling sore and achy in the morning. She frequently wakes with pain in her neck, spine, or joints. Normal bedtime is around 11 p.m. on the weekdays and midnight on the weekends, taking 20 to 30 minutes to fall asleep. She typically gets about 6 to 8 hours of sleep per night. Her wake up time is around 7.a.m. on the weekdays and 8a.m. to 9 a.m. on the weekends. She typically wakes up around 4 or more times per night, awake 20 to 30 minutes. Habits: Former tobacco smoker. Drinks about 1 caffeinated beverage per day. Alcohol use is about 1 drink per week. No recreational substance use. FOR[facility]LY [facility] Past Medical History Medical History Achilles rupture, left Achilles tendinitis Achilles tendinitis of right lower extremity Anesthesia complication Ankylosing spondylitis Arthritis Chest tightness Degenerative arthritis of left knee Depression DVT (deep venous thrombosis) Encounter for postoperative care Endometrial polyp Exostosis of right posterior calcaneus Fatty liver GERD (gastroesophageal reflux disease) History of angina HTN (hypertension) Hyperlipidemia IBS (irritable bowel syndrome) Inflammatory arthritis Iron deficiency anemia MRSA (methicillin resistant Staphylococcus aureus) Obesity, Class III, BMI 40-49.9 (morbid obesity) CLEMENT (obstructive sleep apnea) Peripheral neuropathy MERRY (stress urinary incontinence, female) Tendonitis of ankle or foot Ulcer Vaginal delivery x 2 Vertigo
[2023-06-06 09:22] VITALS: BMI 42.5
== END 2023-05-18 11:00 | disposition home or self-care (01) ==
LOC: ANHCSM 09:03
PROVIDERS: PCP Family Medicine; Visit Provider Physician Assistant
DX: G47.10 Hypersomnia, unspecified (principal); G47.33 Obstructive sleep apnea (adult) (pediatric)
CPT/HCPCS: 95800

== ENCOUNTER 2023-06-19 08:16 | Outpatient (CLI) | payer OTHER, SELFPAY ==
[2023-06-19 09:16] LABS: Alanine Aminotransferase 17 U/L (6-35); Albumin Level 4.1 g/dL (3.5-5.1); Alkaline Phosphatase 100 U/L (38-126); Anion Gap 9 mmol/L (8-16); Aspartate Amino Transferase 20 U/L (14-36); Bilirubin,Total 0.8 mg/dL (0.2-1.3); Blood Urea Nitrogen 17 mg/dL (7-17); Calcium 9.7 mg/dL (8.4-10.2); Carbon Dioxide 28 mmol/L (22-30); Chloride 99 mmol/L (98-107); Cholesterol 211 mg/dL (0-200); Estimated Glomerular Filt Rate > 60; Glucose 104 mg/dL (65-110); HDL Direct 68 mg/dL; Potassium 3.7 mmol/L (3.4-5.0); Sodium 136 mmol/L (137-145); Triglycerides 132 mg/dL (<150)
[2023-06-19 09:28] LABS: LDL Cholesterol Direct 108 mg/dL
[2023-06-19 09:35] LABS: Vitamin D 25 Hydroxy 21.5 ng/mL
== END 2023-06-19 08:17 | disposition home or self-care (01) ==
LOC: ANHLAB 08:17
PROVIDERS: PCP Family Medicine; Visit Provider Nurse Practitioner
DX: E78.5 Hyperlipidemia, unspecified (principal); E55.9 Vitamin D deficiency, unspecified; R79.89 Other specified abnormal findings of blood chemistry
CPT/HCPCS: 36415; 80053; 80061; 82306; 84443

== ENCOUNTER 2023-12-13 08:38 | Outpatient (CLI) | payer OTHER, SELFPAY ==
[2023-12-13 19:12] LABS: Hematocrit 42.5 % (37.0-47.0); Hemoglobin 13.8 g/dL (12.0-15.0); Mean Corpuscular HGB Conc 32.5 g/dl (32-36); Mean Corpuscular Hemoglobin 32.9 pg (26-34); Mean Corpuscular Volume 101.4 fl (80-100); Mean Platelet Volume 10.1 fl (7.4-10.4); Platelet Count Result 238 k/mm3 (150-375); Red Blood Count 4.19 M/mm3 (4.2-5.4)
[2023-12-13 19:41] LABS: Alanine Aminotransferase 14 U/L (6-35); Albumin Level 3.9 g/dL (3.5-5.1); Alkaline Phosphatase 97 U/L (38-126); Anion Gap 5 mmol/L (4-12); Aspartate Amino Transferase 21 U/L (14-36); Bilirubin,Total 0.7 mg/dL (0.2-1.3); Blood Urea Nitrogen 17 mg/dL (7-17); Calcium 9.8 mg/dL (8.4-10.2); Carbon Dioxide 29 mmol/L (22-30); Chloride 103 mmol/L (98-107); Cholesterol 187 mg/dL (0-200); Estimated Glomerular Filt Rate > 60; Glucose 88 mg/dL (65-110); HDL Direct 64 mg/dL; Potassium 3.7 mmol/L (3.4-5.0); Sodium 137 mmol/L (137-145); Triglycerides 128 mg/dL (<150)
[2023-12-13 19:53] LABS: LDL Cholesterol Direct 107 mg/dL
[2023-12-13 20:24] LABS: Vitamin D 25 Hydroxy 37.7 ng/mL
[2023-12-13 21:52] LABS: Hemoglobin A1C 5.1 % (<5.7)
== END 2023-12-13 08:39 | disposition home or self-care (01) ==
LOC: ANHGOSHLAB 08:39
PROVIDERS: PCP Family Medicine; Visit Provider Nurse Practitioner
DX: Z00.00 Encounter for general adult medical examination without abnormal findings (principal); E78.5 Hyperlipidemia, unspecified; R79.89 Other specified abnormal findings of blood chemistry; E55.9 Vitamin D deficiency, unspecified; I10 Essential (primary) hypertension; R73.01 Impaired fasting glucose
CPT/HCPCS: 36415; 80053; 80061; 82306; 83036; 84443; 85027

== ENCOUNTER 2024-04-17 08:18 | Outpatient (CLI) | payer OTHER, SELFPAY ==
[2024-04-17 13:59] LABS: Alanine Aminotransferase 16 U/L (6-35); Alkaline Phosphatase 95 U/L (38-126); Anion Gap 3 mmol/L (4-12); Aspartate Amino Transferase 45 U/L (14-36); Bilirubin,Total 0.7 mg/dL (0.2-1.3); Blood Urea Nitrogen 20 mg/dL (7-17); Calcium 9.7 mg/dL (8.4-10.2); Carbon Dioxide 31 mmol/L (22-30); Chloride 93 mmol/L (98-107); Cholesterol 187 mg/dL (0-200); Estimated Glomerular Filt Rate > 60; Glucose 95 mg/dL (65-110); HDL Direct 68 mg/dL; Potassium 3.7 mmol/L (3.4-5.0); Sodium 127 mmol/L (137-145); Triglycerides 103 mg/dL (<150)
[2024-04-17 14:11] LABS: LDL Cholesterol Direct 100 mg/dL
[2024-04-17 14:32] LABS: Vitamin D 25 Hydroxy 33.6 ng/mL
== END 2024-04-17 08:19 | disposition home or self-care (01) ==
LOC: ANHGOSHLAB 08:19
PROVIDERS: PCP Family Medicine; Visit Provider Nurse Practitioner
DX: I10 Essential (primary) hypertension (principal); E78.5 Hyperlipidemia, unspecified; E53.8 Deficiency of other specified B group vitamins; E55.9 Vitamin D deficiency, unspecified
CPT/HCPCS: 36415; 80053; 80061; 82306; 82607

== ENCOUNTER 2024-04-24 08:56 | Outpatient (CLI) | payer OTHER, SELFPAY ==
[2024-04-24 16:41] LABS: Alanine Aminotransferase 15 U/L (6-35); Albumin Level 3.7 g/dL (3.5-5.1); Alkaline Phosphatase 85 U/L (38-126); Anion Gap 3 mmol/L (4-12); Aspartate Amino Transferase 40 U/L (14-36); Bilirubin,Total 0.5 mg/dL (0.2-1.3); Blood Urea Nitrogen 18 mg/dL (7-17); Calcium 9.1 mg/dL (8.4-10.2); Carbon Dioxide 29 mmol/L (22-30); Chloride 106 mmol/L (98-107); Estimated Glomerular Filt Rate > 60; Glucose 81 mg/dL (65-110); Potassium 3.9 mmol/L (3.4-5.0); Sodium 138 mmol/L (137-145)
== END 2024-04-24 08:57 | disposition home or self-care (01) ==
LOC: ANHGOSHLAB 08:58
PROVIDERS: PCP Family Medicine; Visit Provider Nurse Practitioner
DX: E87.1 Hypo-osmolality and hyponatremia (principal)
CPT/HCPCS: 36415; 80053

== ENCOUNTER 2024-07-17 07:58 | Outpatient (CLI) | payer OTHER, SELFPAY ==
--- NOTE | ~2024-07-17 | XR_ITS ---
EXAMINATION: XR UGI w barium swallow DATE: 07/17/2024 08:57 INDICATION: Epigastric pain. GERD without esophagitis. TECHNIQUE: The patient drank thick barium, gas-producing crystals, and thin barium. Fluoroscopic spot radiographs of the hypopharynx, esophagus, stomach and proximal small bowel were obtained. Fluorosco py exposure time was 2.2 minutes. Total DAP was 21.34 Gycm^2 COMPARISON: None. FINDINGS: The pharynx is symmetric and without evidence of mass lesion or mucosal irregularity. The esophagus i s normal without mass or stricture. Esophageal motility is normal. Small sliding-type hiatal hernia w ith gastroesophageal junction approximately 3 cm above level of the diaphragm.. There was no gastroes ophageal reflux with provocative maneuvers. The stomach and proximal small bowel are normal. IMPRESSION: 1. Very small sliding-type hiatal hernia with no gastroesophageal reflux with provocative maneuvers. Reviewed, dictated and finalized at location A. UE ATTENDANT IMPRESSION: 1. Very small sliding-type hiatal hernia with no gastroesophageal reflux with p rovocative maneuvers.
== END 2024-07-17 07:59 | disposition home or self-care (01) ==
PROVIDERS: PCP Family Medicine; Visit Provider Nurse Practitioner Family
DX: K44.9 Diaphragmatic hernia without obstruction or gangrene (principal); K21.9 Gastro-esophageal reflux disease without esophagitis
CPT/HCPCS: 74240